=== PATIENT | female | born 1990 | race Caucasian/White ===

== ENCOUNTER 2016-12-06 13:16 | Inpatient (IN) | payer OTHER ==
[~2016-12-06] VITALS: Ht 157.5 cm; Wt 105.2 kg
[2016-12-06 13:57] LABS: BASOPHIL % 0.2 % (0-2); PLATELET COUNT 244 x10^3mcL (130-400); RED CELL DISTRIBUTION WIDTH 13.5 % (11.5-14.5)
[2016-12-06 14:02] LABS: CALCIUM 8.7 mg/dL (8.5-10.1); CARBON DIOXIDE 24.8 mmol/L (21-32); CHLORIDE SERUM 97 mmol/L (98-107); CREATININE SERUM 0.7 mg/dL (0.6-1.0); GFR1 > 60 mL/min; GLUCOSE SERUM 134 mg/dL (74-106); POTASSIUM SERUM 3.4 mmol/L (3.5-5.1); SODIUM SERUM 132 mmol/L (136-145)
[2016-12-06 14:04] LABS: microscopic required? YES; urine erythrocyte 2+ (NEGATIVE)
[2016-12-06 15:34] LABS: CHOLESTEROL/HDL RATIO 3.1; MAGNESIUM 1.5 mg/dL (1.8-2.4)
[2016-12-06 15:45] LABS: T3 TOTAL 0.92 ng/mL
[2016-12-06 15:59] LABS: FREE T4 1.18 ng/dL (0.76-1.46); FREE THYROXINE INDEX 2.2 ug/dL (1.4-4.5); T4(THYROXINE) 6.8 ug/dL (4.7-13.3)
[2016-12-06 16:07] LABS: AMPHETAMINE QUAL UR NONE DETECTED (NEG <=1000)
[2016-12-06 16:30] VITALS: BP 138/63
[2016-12-06 16:36] VITALS: Ht 157.5 cm; Wt 105.2 kg
[2016-12-06 18:43] VITALS: BP 102/43
[2016-12-06 20:45] VITALS: BP 133/68
[2016-12-06 22:57] VITALS: BP 136/64
[2016-12-07 05:49] VITALS: BP 127/63
[2016-12-07 06:14] LABS: BASOPHIL % 0.2 % (0-2); PLATELET COUNT 188 x10^3mcL (130-400); RED CELL DISTRIBUTION WIDTH 13.4 % (11.5-14.5)
[2016-12-07 06:26] LABS: CALCIUM 7.7 mg/dL (8.5-10.1); CARBON DIOXIDE 22.6 mmol/L (21-32); CHLORIDE SERUM 103 mmol/L (98-107); CREATININE SERUM 0.6 mg/dL (0.6-1.0); GFR1 > 60 mL/min; GLUCOSE SERUM 120 mg/dL (74-106); PHOSPHOROUS 2.4 mg/dL (2.5-4.9); POTASSIUM SERUM 3.4 mmol/L (3.5-5.1); SODIUM SERUM 135 mmol/L (136-145)
[2016-12-07 09:20] VITALS: BP 108/61
[2016-12-07 17:14] VITALS: BP 109/62
[2016-12-07 21:31] VITALS: BP 102/50
[2016-12-08 05:58] VITALS: BP 134/91
[2016-12-08 06:00] VITALS: BP 116/55
[2016-12-08 08:17] LABS: BASOPHIL % 0.4 % (0-2); PLATELET COUNT 203 x10^3mcL (130-400); RED CELL DISTRIBUTION WIDTH 13.8 % (11.5-14.5)
[2016-12-08 08:30] LABS: CALCIUM 8.7 mg/dL (8.5-10.1); CARBON DIOXIDE 26.8 mmol/L (21-32); CHLORIDE SERUM 104 mmol/L (98-107); CREATININE SERUM 0.5 mg/dL (0.6-1.0); GFR1 > 60 mL/min; GLUCOSE SERUM 104 mg/dL (74-106); PHOSPHOROUS 2.1 mg/dL (2.5-4.9); POTASSIUM SERUM 3.9 mmol/L (3.5-5.1); SODIUM SERUM 138 mmol/L (136-145)
[2016-12-08 10:15] VITALS: BP 106/53
[2016-12-08] MEDS ORDERED: KEFLEX500 M1 PO (13:01)
[2016-12-08] MEDS ORDERED: LAC PO (13:01)
[2016-12-08] MEDS ORDERED: CEPACOL SORE TH1 LO4 MM (13:03)
[2016-12-08 13:11] VITALS: BP 106/53
== END 2016-12-08 14:55 | disposition home or self-care (01) | DRG 720 ==
LOC: ED 13:16 → MU 14:53 → DU 14:53 → MU 12-07 08:38
PROVIDERS: Emergency Medicine; ADMIT Family Medicine
DX: A41.9 Sepsis, unspecified organism (principal); E87.1 Hypo-osmolality and hyponatremia; E87.8 Other disorders of electrolyte and fluid balance, not elsewhere classified; N39.0 Urinary tract infection, site not specified; E87.6 Hypokalemia; E11.9 Type 2 diabetes mellitus without complications; B00.2 Herpesviral gingivostomatitis and pharyngotonsillitis; E66.01 Morbid (severe) obesity due to excess calories; Z68.41 Body mass index [BMI] 40.0-44.9, adult
CPT/HCPCS: 84439; J0295; J1956; J2405; J3010; J3475; J3490; J7030; J7040; Q0092